=== PATIENT | male | born 1990 | race Caucasian/White ===

== ENCOUNTER 2020-08-18 22:33 | Emergency (ER) | payer SELFPAY ==
--- NOTE | 2020-08-18 22:50 | ER Document Report ---
ED Medical Screen (RME) - General Chief Complaint: Abscess Stated Complaint: ABSCESS ON LEFT KNEE Time Seen by Provider: 08/18/20 22:41 Mode of Arrival: Medic Information source: Patient Notes: 29-year-old male presented to ED with a large abscess to the left leg with red streaks going up the thigh and down the leg. He states it started as a little bit of sore this morning and got much better bigger throughout the day. He states about 2 hours ago he popped it himself because it was so bad and now it has gotten very large and with red streaks more than they were before. He states he does smoke a pack and half a day does not drink he has quit he does use meth and marijuana. He states he did shoot up meth today. He states he also had some Percocet left over from when he had a snakebite and so he took some of that today. Patient is alert oriented respirations regular nonlabored. Have ordered blood urine chest x-ray I have greeted and performed a rapid initial assessment of this patient. A comprehensive ED assessment and evaluation of the patient, analysis of test results and completion of medical decision making process will be conducted by an additional ED providers. - Related Data Allergies/Adverse Reactions: No Known Allergies Allergy (Unverified 08/18/20 22:43) Physical Exam - Vital signs Vitals: Temp Pulse Resp BP Pulse Ox 98.3 F 91 16 137/94 H 100 08/18/20 22:39 08/18/20 22:39 08/18/20 22:39 08/18/20 22:39 08/18/20 22:39 Course - Vital Signs Vital signs: Temp Pulse Resp BP Pulse Ox 98.3 F 91 16 137/94 H 100 08/18/20 22:39 08/18/20 22:39 08/18/20 22:39 08/18/20 22:39 08/18/20 22:39
[2020-08-18 23:24] LABS: ABSOLUTE BASOPHILS # (AUTO) 0.1 10^3/uL (0.0-0.2); ABSOLUTE EOSINOPHILS # (AUTO) 0.2 10^3/uL (0.0-0.6); ABSOLUTE LYMPHOCYTES (AUTO) 1.9 10^3/uL (0.5-4.7); ABSOLUTE MONOCYTES (AUTO) 1.2 10^3/uL (0.1-1.4); ABSOLUTE NEUT (AUTO) 9.7 10^3/uL (1.7-8.2); BASOPHILS % (AUTO) 0.8 % (0-2); EOSINOPHILS % (AUTO) 1.3 % (0-6); HEMATOCRIT 36.5 % (37.9-51.0); HEMOGLOBIN 12.2 g/dL (13.5-17.0); LYMPHOCYTES % (AUTO) 14.7 % (13-45); MEAN CORPUSCULAR HEMOGLOBIN 28.7 pg (27.0-33.4); MEAN CORPUSCULAR HGB CONC 33.5 g/dL (32.0-36.0); MEAN CORPUSCULAR VOLUME 86 fl (80-97); MONOCYTES % (AUTO) 9.2 % (3-13); PLATELET COUNT 432 10^3/uL (150-450); RED BLOOD COUNT 4.26 10^6/uL (4.35-5.55); RED CELL DISTRIBUTION WIDTH 14.6 % (11.5-14.0); TOTAL CELLS COUNTED % (AUTO) 100 %; WHITE BLOOD COUNT 13.1 10^3/uL (4.0-10.5)
[2020-08-18 23:27] LABS: APPEARANCE,URINE SLIGHTLY-CLOUDY; BILIRUBIN,URINE NEGATIVE (NEGATIVE); COLOR,URINE YELLOW; GLUCOSE, URINE NEGATIVE (NEGATIVE); KETONES,URINE NEGATIVE (NEGATIVE); LEUKOCYTE ESTERASE,URINE MODERATE (NEGATIVE); NITRITE,URINE NEGATIVE (NEGATIVE); PROTEIN,URINE 30 mg/dL (NEGATIVE); URINE SPECIFIC GRAVITY 1.031
--- NOTE | 2020-08-18 23:33 | RADIOLOGY REPORT (SQ) ---
EXAM DESCRIPTION: KNEE LEFT 4 VIEW CLINICAL HISTORY: 29 years Male, Red swollen tender possible spider bite. Patella pain. COMPARISON: None. FINDINGS: There is marked prepatellar soft tissue thickening and edema. A knee effusion is seen. No radiopaque foreign body. No air in the soft tissues. Alignment the knee is anatomic and the joint spaces preserved. No osteophyte formation. IMPRESSION: Marked prepatellar soft tissue edema. No air in the soft tissue. No fracture. Knee effusion is also present..
[2020-08-18 23:43] LABS: ALBUMIN 3.6 g/dL (3.5-5.0); ALKALINE PHOSPHATASE 68 U/L (38-126); ASPARTATE AMINO TRANSFERASE 18 U/L (17-59); BILIRUBIN,DIRECT 0.1 mg/dL (0.0-0.4); BILIRUBIN,TOTAL 0.2 mg/dL (0.2-1.3); BLOOD UREA NITROGEN 18 mg/dL (7-20); CARBON DIOXIDE 31 mmol/L (22-30); GLUCOSE 76 mg/dL (75-110); POTASSIUM 4.3 mmol/L (3.6-5.0); TOTAL PROTEIN 6.5 g/dL (6.3-8.2)
[2020-08-18 23:49] LABS: ANION GAP 4 (5-19); CHLORIDE 100 mmol/L (98-107)
[2020-08-19] MEDS ORDERED: CLINDAMYCIN HCL 150 MG CAPSULE PO ONE (01:22)
--- NOTE | 2020-08-19 01:32 | ER Document Report ---
ED General - General Chief Complaint: Abscess Stated Complaint: ABSCESS ON LEFT KNEE Time Seen by Provider: 08/18/20 22:41 Mode of Arrival: Medic Notes: 29-year-old male history of IV methamphetamine use presents with cellulitis to left knee for the past few days. Patient first noticed he had a small pimple on the back of his neck which he scratched several days ago which over a few days started becoming more painful which is now resolved but then after that he had a few other areas on his body develop small areas of redness which has since resolved knee has gotten worse. Patient still able to ambulate, able to fully range knee, no weakness or numbness, no fever, patient denies any immunocompromise history. - Related Data Allergies/Adverse Reactions: No Known Allergies Allergy (Unverified 08/18/20 22:43) Past Medical History - General Information source: Patient - Social History Smoking Status: Current Every Day Smoker Frequency of alcohol use: None Drug Abuse: Methamphetamine Family History: Reviewed & Not Pertinent Review of Systems - Review of Systems Notes: REVIEW OF SYSTEMS: CONSTITUTIONAL : Denies fever, chills, or sweats. EENT: Denies recent cold/sinus symptoms, denies throat pain CARDIOVASCULAR: Denies chest pain, ITA RESPIRATORY: Denies cough, denies shortness of breath. GASTROINTESTINAL: Denies abdominal pain, nausea/vomiting. GENITOURINARY: Denies difficulty urinating, painful urination. MUSCULOSKELETAL: Denies neck pain, back pain. SKIN: + rash or skin lesions. HEMATOLOGIC : Denies easy bruising or bleeding. LYMPHATIC: Denies swollen, enlarged glands. NEUROLOGICAL: Denies headache, denies change in gait. PSYCHIATRIC: Denies anxiety or stress or depression. Physical Exam - Vital signs Vitals: Temp Pulse Resp BP Pulse Ox 98.3 F 91 16 137/94 H 100 08/18/20 22:39 08/18/20 22:39 08/18/20 22:39 08/18/20 22:39 08/18/20 22:39 - Notes Notes: PHYSICAL EXAMINATION: GENERAL: Well-appearing young adult appearing older than stated age in no acute distress HEAD: Atraumatic, normocephalic. EYES: Pupils equal round and appropriate constriction, sclera anicteric, conjunctiva are normal. ENT: nares patent, moist mucous membranes. NECK: Normal range of motion, supple without lymphadenopathy LUNGS: Breath sounds clear to auscultation bilaterally and equal. No wheezes rales or rhonchi. HEART: Regular rate and rhythm without murmurs ABDOMEN: Soft, nontender, no guarding, no masses, no CVAT EXTREMITIES: Normal range of motion, no pitting or edema. No cyanosis. NEUROLOGICAL: Awake, alert, conversing appropriately, moves all extremities spontaneously. PSYCH: Normal mood, normal affect. 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 Prescribed patient clindamycin given first dose in ED and gave return to ED precautions and PCP follow-up for wound check. Patient demonstrated understanding. 08/19/20 01:43 Patient refused to sign paperwork because he stated that he did not offer him pain medication. Nurse offered patient pain medication at that time but patient refused. - Vital Signs Vital signs: Temp Pulse Resp BP Pulse Ox 98.3 F 91 16 137/94 H 100 08/18/20 22:39 08/18/20 22:39 08/18/20 22:39 08/18/20 22:39 08/18/20 22:39 - Laboratory Results Result Diagrams: 08/18/20 23:05 08/18/20 23:05 Laboratory Results Interpreted: 08/18/20 08/18/20 08/18/20 23:05 23:05 23:05 WBC 13.1 H RBC 4.26 L Hgb 12.2 L Hct 36.5 L RDW 14.6 H Absolute Neuts (auto) 9.7 H Sodium 135.2 L Carbon Dioxide 31 H Anion Gap 4 L Urine Protein 30 H Urine Urobilinogen 2.0 H Ur Leukocyte Esterase MODERATE H Critical Laboratory Results Reviewed: No Critical Results - Radiology Results Critical Radiology Results Reviewed: No Critical Results Discharge - Discharge Clinical Impression: Cellulitis Qualifiers: Site of cellulitis: extremity Site of cellulitis of extremity: lower extremity Laterality: left Qualified Code(s): L03.116 - Cellulitis of left lower limb Disposition: HOME, SELF-CARE Additional Instructions: Take all antibiotics as prescribed. Follow-up with your primary doctor within 3 days. If you have any worsening pain, spreading pain, fever, vomiting, confusion, or any other worsening or alarming symptoms return to the emergency department immediately. Prescriptions: Clindamycin HCl [Cleocin 150 mg Capsule] 450 mg PO QID 7 Days #28 capsule
[2020-08-19] MEDS ORDERED: HYDROCODONE/ACETAMINOPHEN 5-325 MG (6 TAB/ER DISP) PO PRN (03:25)
[2020-08-19 04:03] VITALS: BP 136/84
== END 2020-08-19 03:40 | disposition home or self-care (01) ==
LOC: ER 22:33
DX: L03.116 Cellulitis of left lower limb (principal); F15.10 Other stimulant abuse, uncomplicated; F17.200 Nicotine dependence, unspecified, uncomplicated
CPT/HCPCS: 36415; 80053; 81001; 85025; 87040; 99284

== ENCOUNTER 2020-08-26 02:58 | Emergency (ER) | payer SELFPAY ==
[2020-08-26] MEDS ORDERED: DOXYCYCLINE HYCLATE 100 MG TABLET PO ONE (11:08)
[2020-08-26] MEDS ORDERED: KETOROLAC TROMETHAMINE 60 MG/2 ML SDV IM ONE (11:08)
--- NOTE | 2020-08-26 11:17 | ER Document Report ---
ED General - General Chief Complaint: Facial Swelling Stated Complaint: LIP PAIN Time Seen by Provider: 08/26/20 10:01 - HPI Notes: Patient is a 29-year-old male who presents to the emergency department for evaluation. He is very angry at the length of his stay, and thereby an extremely difficult historian. Patient states he fell a few days ago, injuring his lip and breaking a tooth. He states that the swelling got worse within 24 hours, but it is slightly improved. He comes here for evaluation of this pain. He also was seen here recently for cellulitis of the left knee. He admits he did not fill the clindamycin prescription that was written for him. He states he had old clindamycin at home which he took that did not help. He states he felt feverish the other day with some associated chills, but did not take his temperature. He has had no nausea or vomiting. No diarrhea. He has no history of MRSA to his knowledge. - Related Data Allergies/Adverse Reactions: No Known Allergies Allergy (Verified 08/26/20 10:00) Home Medications: none Past Medical History - General Information source: Patient - Social History Smoking Status: Current Every Day Smoker Drug Abuse: Marijuana, Methamphetamine Family History: Reviewed & Not Pertinent Review of Systems - Review of Systems Constitutional: See HPI EENT: See HPI Cardiovascular: No symptoms reported Respiratory: No symptoms reported Gastrointestinal: No symptoms reported Genitourinary: No symptoms reported Musculoskeletal: See HPI Skin: See HPI Neurological/Psychological: No symptoms reported Physical Exam - Vital signs Vitals: Temp Pulse Resp BP Pulse Ox 98.4 F 79 20 140/91 H 100 08/26/20 03:03 08/26/20 03:03 08/26/20 03:03 08/26/20 03:03 08/26/20 03:03 - Notes Notes: This is an angry and disheveled 29-year-old male who appears older than his stated age, no acute distress. Head is normocephalic. Pupils are equal round, reactive to light. Nares are patent without septal hematoma. Oral mucosa is moist. He has a moderate amount of edema to the right lateral aspect of the lip with a healing laceration to the inner lip mucosa, granulation tissue noted. I do not appreciate any fluctuance. He does have some erythema surrounding the wound which appears reactive. I do not appreciate any significant other signs of infection. Heart is regular rate and rhythm, lungs are clear to auscultation bilaterally. Abdomen soft, nontender, normoactive bowel sounds. Examination of the spine shows no midline tenderness or step-off. No paraspinal musculature tenderness appreciated. Patient is awake, alert, oriented x3. Cranial nerves II - XII are grossly intact without focal neurological deficits. Strength is plus 5 out of 5 bilateral upper and lower extremities. Sensation is intact. Reflexes symmetrical. Intact [id number], rapid alternating movements, [id number]. Examination of the skin yields erythema with a recently draining abscess, very minimal amount of purulence, to the left knee, measuring approximately 9 cm. He does not have any effusion of the left knee. Full range of motion without significant pain. Neurovascularly intact distally. Course - Re-evaluation Re-evalutation: 08/26/20 11:19 Patient presents emergency department for evaluation. The patient was very aggressive and abusive towards this examiner. Security intervened on 2 separate occasions secondary to the patient's level of agitation as well as his language towards this provider. I was able to eventually examine him. He was unhappy about not receiving pain medication. I told him I would be happy to treat him with Toradol and prescription strength anti-inflammatories, which would help with the cause of his pain as well as the pain itself. He did reluctantly accept. Otherwise, I told him that taking old antibiotics, and an unknown amount, would not be helpful with cellulitis, and I will switch him to doxycycline as he says that the clindamycin has not been helpful for him in the past. Prescriptions were written and sent to his pharmacy. He was unhappy with the wait time and other circumstances regarding his stay, so the charge nurse was contacted. Otherwise, the patient will be discharged in stable condition. - Vital Signs Vital signs: Temp Pulse Resp BP Pulse Ox 98.4 F 99 24 H 133/94 H 99 08/26/20 03:03 08/26/20 05:37 08/26/20 05:37 08/26/20 05:37 08/26/20 05:37 - Laboratory Results Critical Laboratory Results Reviewed: No Critical Results - Radiology Results Critical Radiology Results Reviewed: No Critical Results Discharge - Discharge Clinical Impression: Cellulitis of left knee Lip injury Qualifiers: Encounter type: initial encounter Qualified Code(s): S09.93XA - Unspecified injury of face, initial encounter Dental injury Qualifiers: Encounter type: initial encounter Qualified Code(s): S09.93XA - Unspecified injury of face, initial encounter Condition: Stable Disposition: HOME, SELF-CARE Instructions: Cellulitis ([facility]), Contusion ([facility]), Dental Injury ([facility]) Additional Instructions: Please keep wound to your lip clean with soap and water. Take medication as prescribed for the infection in the skin of your left knee. You should follow- up with primary care as well as a dentist as soon as possible. If you develop fevers, swelling of the tongue, difficulty breathing, vomiting, or any other new or concerning symptoms please return immediately to the emergency department for evaluation. Prescriptions: Ibuprofen [Ibu] 800 mg PO TID #30 tablet Doxycycline Hyclate [Vibramycin 100 mg Tablet] 100 mg PO BID #19 tablet
[2020-08-26 11:42] VITALS: BP 142/78
== END 2020-08-27 09:20 | disposition home or self-care (01) ==
LOC: ER 02:58
DX: S02.5XXA Fracture of tooth (traumatic), initial encounter for closed fracture (principal); S01.511A Laceration without foreign body of lip, initial encounter; W19.XXXA Unspecified fall, initial encounter; L03.116 Cellulitis of left lower limb; T36.8X6A Underdosing of other systemic antibiotics, initial encounter; Z91.128 Patient's intentional underdosing of medication regimen for other reason; Z91.14 Patient's other noncompliance with medication regimen; F15.10 Other stimulant abuse, uncomplicated; F12.10 Cannabis abuse, uncomplicated; F17.200 Nicotine dependence, unspecified, uncomplicated
CPT/HCPCS: 99283